=== PATIENT | female | born 1975 | race Caucasian/White ===

== ENCOUNTER → 2017-02-21 | Outpatient (CLI) | payer BC ==
[~2017-02-21] MED LIST: EXCEDRIN MIGRA1 EACH PO; FLEXERIL10 MG PO; HYDROCODON-ACE1 EAC4 PO; IRON65 PO; KLONOPIN0.5 MG PO; LEXAPRO20 MG PO; PROTONIX40 MG PO; ULTRAM50 MG PO
== END | disposition disaster alternative care site (69) ==
LOC: GOPD 02-18
PROC: 3E0S33Z Introduction of Anti-inflammatory into Epidural Space, Percutaneous Approach (ICD-10-PCS; principal; 2017-02-21)
PROC: 3E0S3BZ Introduction of Anesthetic Agent into Epidural Space, Percutaneous Approach (ICD-10-PCS; 2017-02-21)
DX: M54.5 Low back pain (principal)
CPT/HCPCS: J1040